=== PATIENT | female | born 2000 | race African-American/Black ===

== ENCOUNTER 2024-09-01 21:13 | Emergency (ER) | payer MEDICAID ==
[~2024-09-01] VITALS: Ht 157.5 cm; Wt 50.0 kg
[2024-09-01 21:22] VITALS: O2SAT 100
[2024-09-02] VITALS: BP 111/69; PULSE 62; RESP 17; TEMP 36.28068; O2SAT 100
[2024-09-02] MEDS ORDERED: TRAM50TA3 MT ×2 (00:51)
[2024-09-02] MEDS ORDERED: IBUP-1521 MT (00:51)
[2024-09-02] MEDS ORDERED: TOPUD MT (00:51)
== END 2024-09-02 02:09 | disposition home or self-care (01) ==
LOC: ER 21:13
DX: M79.671 Pain in right foot (principal); M79.89 Other specified soft tissue disorders
CPT/HCPCS: 81025; 73610; 73630; 29505; 99284; Z7610